=== PATIENT | female | born 1960 | race Caucasian/White ===

== ENCOUNTER 2020-04-04 17:22 | Emergency (ER) | payer BC, OTHER ==
[~2020-04-04] VITALS: Ht 160 cm; Wt 56.7 kg
--- NOTE | 2020-04-04 18:10 | NUR ---
Dr Nj at the bedside for MSE.
[2020-04-04] MEDS ORDERED: FAMOTIDINE. 20 MG/2 ML VIAL IV ONE ×2 (18:15→18:23)
[2020-04-04] MEDS ORDERED: BISACODYL 5 MG TABLET.DR PO ONE ×2 (18:15→18:18)
[2020-04-04] MEDS ORDERED: ONDANSETRON 4 MG/2 ML VIAL IV ONE (18:15)
[2020-04-04] MEDS ORDERED: IV NORMAL SALINE 1000 ML BAG IV ONE (18:15)
[2020-04-04] MEDS ORDERED: MORPHINE SULFATE 2 MG/1 ML DISP.SYRIN IV ONE (18:15)
[2020-04-04] MEDS ORDERED: ONDANSETRON 4 MG/2 ML VIAL ONE (18:22)
[2020-04-04] MEDS ORDERED: MORPHINE SULFATE 2 MG/1 ML DISP.SYRIN ONE (18:23)
[2020-04-04 18:35] LABS: *BILIRUBIN,URIN NEGATIVE (NEGATIVE); *COLOR,URINE YELLOW (YELLOW); *KETONES,URINE NEGATIVE (NEGATIVE); *UROBILINOGEN,URINE 0.2 E.U./dl (NORMAL); LEUKOCYTE ESTERASE ,URINE NEGATIVE (NEGATIVE); NITRITE, URINE NEGATIVE (NEGATIVE); UGLUCOSE NEGATIVE (NEGATIVE)
[2020-04-04 18:40] LABS: *BLOOD, URINE TRACE INTACT (NEGATIVE)
[2020-04-04 18:48] LABS: BASOPHILS % (AUTO) 0.6 % (0.0-2.0); EOSINOPHILS % (AUTO) 0.1 % (0.0-7.0); HEMATOCRIT 39.6 % (31.2-41.9); HEMOGLOBIN 13.1 g/dL (10.9-14.3); LYMPHOCYTES # (AUTO) 0.5 K/uL (20.0-40.0); LYMPHOCYTES % (AUTO) 5.9 % (20.5-51.5); MEAN CORPUSCULAR HEMOGLOBIN 30.5 uug (24.7-32.8); MEAN CORPUSCULAR HGB CONC 33 g/dL (32.3-35.6); MEAN CORPUSCULAR VOLUME 92.4 fL (75.5-95.3); MONOCYTES # (AUTO) 0.4 K/uL (2.0-10.0); MONOCYTES % (AUTO) 4.9 % (0.0-11.0); NEUTROPHILS # (AUTO) 6.8 K/uL (1.8-8.9); NEUTROPHILS % (AUTO) 88.5 % (38.5-71.5); PLATELET COUNT (AUTO) 213 K/uL (179-408); RED BLOOD CELL COUNT(AUTO) 4.29 MIL/uL (3.63-4.92); WHITE BLOOD COUNT (AUTO) 7.7 K/uL (3.8-11.8)
[2020-04-04 18:52] LABS: *CLARITY,URINE SLIGHTLY HAZY (CLEAR); BACTERIA,URINE NONE SEEN /HPF (NONE SEEN); SQUAMOUS EPITHELIAL CELL,UR FEW /HPF (NONE SEEN); WBC,URINE 0-3 /HPF (0-3)
[2020-04-04 19:33] LABS: CREATININE 0.9 mg/dL (0.6-1.3); POTASSIUM 4.3 mmol/L (3.5-5.1)
[2020-04-04 19:38] LABS: BILIRUBIN,DIRECT 0.1 mg/dL (0.0-0.2); BILIRUBIN,TOTAL 0.5 mg/dL (0.2-1.0); TOTAL PROTEIN, SERUM 7.5 g/dL (6.4-8.2)
[2020-04-04] MEDS ORDERED: OXYC-117 PO (19:39)
[2020-04-04] MEDS ORDERED: ONDA4TAB5 PO (19:41)
--- NOTE | 2020-04-04 20:03 | NUR ---
Patient discharged to home in stable condition. A & O x 4. Written and verbal after care instructions given. Patient verbalizes understanding of instructions. Stressed follow up or return to ER for worsening s/s. Instructed not to drive - due to medications given. Steady gait. All belongings returned to patient prior to departure.
[2020-04-04 20:06] VITALS: BP 158/89
== END 2020-04-04 20:03 | disposition home or self-care (01) ==
LOC: ER 17:22
DX: K52.9 Noninfective gastroenteritis and colitis, unspecified (principal); Z82.3 Family history of stroke; Z80.0 Family history of malignant neoplasm of digestive organs; Z82.49 Family history of ischemic heart disease and other diseases of the circulatory system
CPT/HCPCS: 36415; 83690; 85025; A4663; J2270; J2405; J3490; J7030; J7060